=== PATIENT | female | born 1990 | race Caucasian/White ===

== ENCOUNTER 2023-06-30 09:23 | Inpatient (IN) | payer BC, SELFPAY ==
[2023-06-30 11:04] VITALS: BP 123/81; BMI 31.2
[2023-06-30 11:04] LABS: Hematocrit 35.2 % (37.0-47.0); Hemoglobin 12.1 g/dL (12.0-16.0); Mean Corp Hgb Conc. 34.4 g/dL (33.0-37.0); Mean Corpuscular Volume 87.1 fL (81.0-99.0); Mean Platelet Volume 10.6 fL (7.4-10.4); Platelet Count 196 10^3/uL (130-400); Red Blood Cell Count 4.04 10^6/uL (4.20-5.40); Red Cell Dist. Width 13.4 % (11.5-14.5); White Blood Cell Count 10.3 10^3/uL (4.8-10.8)
[2023-06-30] MEDS: TYLENOL 1000 MG PO (16:03)
[2023-06-30] MEDS: BICITRA 30 ML PO (16:06)
[2023-06-30] MEDS: ANCEF 10 IV (16:06)
[2023-06-30] MEDS: PRENATAL PLUS PO (22:08)
[2023-06-30] MEDS: TORADOL 15 MG IV (23:09)
[2023-07-01] MEDS: ZOFRAN 4 MG IV (01:01)
[2023-07-01] MEDS: TORADOL 15 MG IV ×3 (04:54→16:39)
[2023-07-01 05:58] LABS: Hematocrit 32.5 % (37.0-47.0); Hemoglobin 10.7 g/dL (12.0-16.0); Mean Corp Hgb Conc. 32.9 g/dL (33.0-37.0); Mean Corpuscular Hgb 29.5 pg (27.0-31.0); Mean Corpuscular Volume 89.5 fL (81.0-99.0); Mean Platelet Volume 10.5 fL (7.4-10.4); Platelet Count 200 10^3/uL (130-400); Red Blood Cell Count 3.63 10^6/uL (4.20-5.40); Red Cell Dist. Width 13.6 % (11.5-14.5); White Blood Cell Count 20.5 10^3/uL (4.8-10.8)
[2023-07-01] MEDS: SENOKOT-S 1 TABLET PO (08:06)
[2023-07-01] MEDS: MYLICON 80 MG PO ×2 (08:06→21:31)
[2023-07-01] MEDS: PRENATAL PLUS 1 TABLET PO (08:06)
--- NOTE | 2023-07-01 08:07 | W.PN.ANS.POP ---
Anesthesia Post Operative
- Anesthesia Post Op Note
Vital Signs Stable-See Nursing Note: Yes
Airway Patent: Yes
Adequate Pain Control: Yes
Change in Mental Status: No
Current Postoperative Nausea & Vomiting: No
Anesthesia Complications: No
General Anesthetic Recall: No
Unplanned Admission: No
Post Op Hydration Adequate: Yes
[2023-07-01] MEDS: TYLENOL 650 MG PO (19:41)
[2023-07-01] MEDS: MOTRIN 600 MG PO (23:40)
[2023-07-02] MEDS: TYLENOL 650 MG PO ×4 (05:15→20:49)
[2023-07-02] MEDS: MOTRIN 600 MG PO ×3 (08:47→20:49)
[2023-07-02] MEDS: PRENATAL PLUS 1 TABLET PO (08:47)
[2023-07-02] MEDS: SENOKOT-S 1 TABLET PO (14:43)
[2023-07-02 14:53] LABS: Syphilis/T. pallidum Ab Reflex Negative (Negative)
[2023-07-03] MEDS: TYLENOL 650 MG PO ×2 (03:52→13:20)
[2023-07-03] MEDS: MOTRIN 600 MG PO ×2 (03:52→13:20)
--- NOTE | 2023-07-03 07:59 | W.DS.TRANS ---
DC Summary - Traffic Worker
-
Discharge Instructions:
Discharge Diagnosis/Procedures Section
Instructions:
Stand-Alone Forms: LDRP Delivery
Changes to Home Medications: No
Discharge Medications:
DC Medications w/original date entered in [facility]
prenat.vits,kelvin,csk-oikz-ivzjs 1 tab PO 1XD Supplement 06/30/23
acetaminophen 325 mg tablet 650 mg (2 x 325 mg) PO Q4HPRN PRN mild pain #0 tabs 07/03/23
ibuprofen 600 mg tablet 600 mg PO Q6HPRN PRN cramps #45 tabs 07/03/23
sennosides 8.6 mg-docusate sodium 50 mg tablet (Stool Softener-Stimulant Laxative) 1 tab PO DAILYPRN PRN constipation #0 tabs 07/03/23
Home Medication Changes
Pending Results: No
[2023-07-03] MEDS: PRENATAL PLUS 1 TABLET PO (08:24)
== END 2023-07-03 15:41 | disposition home or self-care (01) | DRG 788 ==
LOC: LDRP 09:23
PROVIDERS: ADMITTING PHYSICIAN Obstetrics & Gynecology
PROC: 10D00Z1 Extraction of Products of Conception, Low, Open Approach (ICD-10-PCS; 2023-06-30)
DX: O48.0 Post-term pregnancy (principal); Z3A.40 40 weeks gestation of pregnancy; Z37.0 Single live birth; O32.1XX0 Maternal care for breech presentation, not applicable or unspecified; Z82.49 Family history of ischemic heart disease and other diseases of the circulatory system; Z80.42 Family history of malignant neoplasm of prostate
CPT/HCPCS: 85027; 86780; 86850; 86900; 86901; 93005

== ENCOUNTER → 2024-01-05 16:00 | Outpatient (REF) | payer BC, SELFPAY | LOC: UCDH 16:00 | PROVIDERS: ATTENDING PHYSICIAN Physician Assistant Medical; FAMILY PHYSICIAN Physician Assistant | DX: M79.675 Pain in left toe(s) (principal) | CPT/HCPCS: 73630 ==

== ENCOUNTER → 2024-03-24 16:39 | Outpatient (REF) | payer BC, SELFPAY | LOC: RAD 16:39 | PROVIDERS: ATTENDING PHYSICIAN Nurse Practitioner Family | DX: O26.851 Spotting complicating pregnancy, first trimester (principal) | CPT/HCPCS: 76801; 76817 ==

== ENCOUNTER → 2024-04-03 15:37 | Outpatient (REF) | payer BC, SELFPAY | LOC: RAD 15:37 | PROVIDERS: ATTENDING PHYSICIAN Student in an Organized Health Care Education/Training Program | DX: O36.80X9 Pregnancy with inconclusive fetal viability, other fetus (principal) | CPT/HCPCS: 76801 ==

== ENCOUNTER → 2024-05-04 17:24 | Outpatient (REF) | payer BC, SELFPAY | LOC: RAD 17:24 | PROVIDERS: ATTENDING PHYSICIAN Student in an Organized Health Care Education/Training Program | DX: Z33.2 Encounter for elective termination of pregnancy (principal) | CPT/HCPCS: 76830; 76856 ==